=== PATIENT | female | born 1995 | race Caucasian/White ===

== ENCOUNTER 2018-02-06 09:53 | Emergency (ER) | payer OTHER ==
[~2018-02-06] VITALS: Ht 160 cm; Wt 56.7 kg
[2018-02-06] MEDS ORDERED: FLUOXETINE HCL10 M2 PO (11:04)
--- NOTE | 2018-02-06 11:25 | ED GI/GU/ABDOMINAL COMPLAINT ---
History of Present Illness General Chief Complaint: Abdominal Pain/Flank Pain Stated Complaint: +NVD, ABD PAIN, X 16 HRS Source: patient Exam Limitations: no limitations Vital Signs & Intake/Output Vital Signs & Intake/Output Vital Signs Date Time Temp Pulse Resp B/P B/P Pulse O2 O2 Flow FiO2 Mean Ox Delivery Rate 02/06 1353 98.0 106 18 117/67 100 Room Air 02/06 1148 98 Room Air 02/06 1142 98.6 87 18 133/71 97 Room Air 02/06 0957 98.0 108 20 149/74 97 Room Air Allergies Uncoded Allergies: ANESTHSIA (UNKNOWN 02/06/18) Reconcile Medications Fluoxetine HCl 10 MG CAPSULE 1 CAP PO DAILY DEPRESSION (Reported) Omeprazole 40 MG CAPSULE.DR 1 CAP PO DAILY ABD PAIN Ondansetron (Zofran Odt) 4 MG TAB.RAPDIS 1 TAB SL TID NAUSEA Triage Note: PT TO ED C/O SUDDEN ONSET OF SHARP ABD PAIN SINCE YESTERDAY. C/O N/V/D. DENIES S/S. STATES PAIN IS "UNSETTLING". Triage Nurses Notes Reviewed? yes ? N Is pt currently ? No Onset: Abrupt Duration: day(s): (1), constant Timing: recent history Quality/Severity: moderate Location: generalized abdomen Radiation: no radiation Activities at Onset: none No Modifying Factors: none HPI: 22-year-old female comes into the emergency room for further evaluation of abdominal pain. Patient reports that symptoms were sudden onset yesterday. She 's had associated vomiting and belching. She had a decrease in bowel movements with a small one today. Denies any vaginal discharge. Denies any increased frequency or burning with urination. Patient had an appendectomy done back in August 2017. She has a history of stress ulcers. (Tank Kruger) Past History Travel History Traveled to [place] past 21 day No Medical History Any Pertinent Medical History? see below for history Psychiatric: anxiety, depression Surgical History Surgical History: appendectomy Psychosocial History What is your primary language Sierra Leonean Tobacco Use: Never used ETOH Use: denies use Illicit Drug Use: marijuana Family History Hx Contributory? No (Tank Kruger) Review of Systems Review of Systems Constitutional: Reports: no symptoms. EENTM: Reports: no symptoms. Respiratory: Reports: no symptoms. Cardiovascular: Reports: no symptoms. GI: Reports: see HPI. Genitourinary: Reports: no symptoms. Musculoskeletal: Reports: no symptoms. Skin: Reports: no symptoms. Neurological/Psychological: Reports: no symptoms. Hematologic/Endocrine: Reports: no symptoms. Immunologic/Allergic: Reports: no symptoms. All Other Systems: Reviewed and Negative (Tank Kruger) Physical Exam Physical Exam General Appearance: well developed/nourished, alert, awake, mild distress Head: atraumatic Eyes: Bilateral: normal appearance. Ears, Nose, Throat, Mouth: hearing grossly normal, moist mucous membrane Neck: normal inspection Respiratory: normal breath sounds, no respiratory distress Cardiovascular: regular rate/rhythm Gastrointestinal: soft Back: normal inspection Extremities: normal range of motion Neurologic/Psych: awake, alert, oriented x 3 Skin: intact, normal color Core Measures ACS in differential dx? No Sepsis Present: No Sepsis Focused Exam Completed? No (Tank Kruger) Progress Differential Diagnosis: biliary colic, bowel obstruction, cholecystitis, diverticulitis, ectopic , gastritis, pancreatitis, PUD/GERD, perforated viscous, SBO, UTI/pyelo Plan of Care: Orders Procedure Date/time Status LIPASE 02/06 1124 Complete LACTIC ACID 02/06 1124 Complete COMPREHENSIVE METABOLIC PANEL 02/06 1124 Complete CBC WITHOUT DIFFERENTIAL 02/06 1124 Complete URINE 02/06 1002 Complete URINALYSIS 02/06 1002 Complete Laboratory Tests 02/06/18 1424: Lactic Acid Cancelled 02/06/18 1137: Anion Gap 15, Estimated GFR > 60, BUN/Creatinine Ratio 18.3, Glucose 96, Lactic Acid 1.0, Calcium 9.6, Total Bilirubin 0.5, AST 23, ALT 24, Alkaline Phosphatase 87, Total Protein 8.1, Albumin 4.6, Globulin 3.5, Albumin/Globulin Ratio 1.3, Lipase 60, CBC w Diff NO MAN DIFF REQ, RBC 4.53, MCV 88.8, MCH 30.0, MCHC 33.8, RDW 12.7, MPV 8.6, Gran % 82.3 H, Lymphocytes % 9.9 L, Monocytes % 7.0, Eosinophils % 0.7, Basophils % 0.1, Absolute Granulocytes 11.5 H, Absolute Lymphocytes 1.4, Absolute Monocytes 1.0 H, Absolute Eosinophils 0.1, Absolute Basophils 0 02/06/18 1100: Urinalysis LIGHT H, Urine Color BELLE, Urine Clarity HAZY H, Urine pH 6.0, Ur Specific Pringle 1.025, Urine Protein TRACE H, Urine Ketones >=80, Urine Nitrite NEG, Urine Bilirubin NEG@ICTO, Urine Urobilinogen 0.2, Ur Leukocyte Esterase NEG, Ur Microscopic SEDIMENT EXAMINED, Urine RBC 1-3, Urine WBC 1-3 H, Ur Epithelial Cells MOD H, Urine Bacteria MANY H, Urine Mucus MANY H, Urine Hemoglobin TRACE-INTACT, Urine Glucose NEG, Urine Test NEGATIVE Diagnostic Imaging: Viewed by Me: CT Scan. Discussed w/RAD: CT Scan. Radiology Impression: PATIENT: JOSE DOMINGUEZ PRESENT AGE : 22 PATIENT ACCOUNT NO: [id number] : 97 LOCATION: [facility] ORDERING PHYSICIAN: Tank CASPER SERVICE DATE: 02/06/18 EXAM TYPE: CAT - CT ABD & PELVIS W IV CONTRAST EXAMINATION: CT ABDOMEN AND PELVIS WITH CONTRAST CLINICAL INFORMATION: Mid abdominal pain, elevated white blood cell count, history of appendectomy, vomiting COMPARISON: None TECHNIQUE: Multidetector volumetric imaging was performed of the abdomen and pelvis following IV administration of 95 mL of Optiray 320 intravenous contrast. Sagittal and coronal reformatted images were obtained on the technologist's workstation. DLP: 245.43 mGy-cm FINDINGS: LUNG BASES: The visualized lung bases are unremarkable. LIVER, GALLBLADDER, AND BILIARY TREE: The liver is normal in size, shape, and attenuation. No focal hepatic lesion or biliary ductal dilatation is present. The gallbladder is unremarkable with no evidence of radiopaque gallstones, gallbladder wall thickening, or obvious pericholecystic inflammatory changes. PANCREAS: Unremarkable. SPLEEN: Unremarkable. ADRENAL GLANDS: Unremarkable. KIDNEYS AND URETERS: The kidneys are normal in size, shape, and attenuation. No hydronephrosis, hydroureter, or calculi seen. No perinephric stranding. BLADDER: Unremarkable. GASTROINTESTINAL TRACT: No evidence of bowel obstruction. Assessment for wall thickening in some segments of the colon is limited due to luminal collapse, though no significant pericolonic stranding is seen to strongly suggest a colitis. Patient is status post appendectomy. No free fluid or free air is seen. ABDOMINAL WALL: No significant hernia is appreciated. LYMPH NODES: Normal. VASCULAR: Unremarkable. PELVIC VISCERA: Unremarkable. OSSEOUS STRUCTURES: Unremarkable. IMPRESSION: No acute findings identified in the abdomen/pelvis. DICTATED BY: Ben Billingsley MD DATE/TIME DICTATED:02/06/181305 DRAFTER CASTINGS:LASHAY DATE/TIME TRANSCRIBED:02/06/181305 CONFIDENTIAL, DO NOT COPY WITHOUT APPROPRIATE AUTHORIZATION. <Electronically signed in Other Vendor System> SIGNED BY: Ben Billingsley MD 02/06/18 1323 Initial ED EKG: none (Tank Kruger) Departure Departure Disposition: HOME OR SELF CARE Condition: Stable Clinical Impression Primary Impression: Abdominal pain Referrals: Unknown (PCP/Family) Additional Instructions: Take Zofran and omeprazole as prescribed. Follow-up with latrine cleaner provided. Return if any concerns worsening symptoms. Please go over all results of today's visit with your primary care doctor. Contact your primary care doctor to let them know you were here in the emergency room. There may be nonspecific findings which may not be related to your visit today here in the emergency room but may require further evaluation and chronic monitoring by your primary care doctor. If you had a laceration today the chance of foreign body always remains. You should follow-up with your primary care doctor for recheck in 3-5 days for a wound check. If you had an x-ray done there is a chance that a fracture could have been missed on initial read and you should follow-up with your primary care doctor for repeat x-rays if symptoms persist. If your blood pressure was elevated here in the emergency room please have rechecked by [facility] primary care doctor within the next 48. If you were prescribed a narcotic here in the emergency room or any type of controlled substances you're not allowed to drive while taking this medication or operate any type of heavy machinery. Narcotics can make you feel lightheaded dizziness nausea and can cause constipation. You may need to black pickler a stool softener. Thank you for choosing [facility] emergency room. Please return to the emergency room immediately if you have any other concerns worsening of symptoms. Departure Forms: Customer Survey General Discharge Information Prescriptions: Current Visit Scripts Omeprazole 1 CAP PO DAILY #30 CAP Ondansetron (Zofran Odt) 1 TAB SL TID #10 TAB Comments 02/06/2018 5:12:21 PM Patient clinically looks well. Patient is in no apparent distress. Patient is nontoxic-appearing. Resting comfortably in room. Patient feels better after IV medications. Her symptoms improved. She is able to tolerate oral liquids. Return immediately if any other concerns worsening symptoms. Understands and agrees with plan of care. Patient started on PPI for possible gastritis versus ulcer. (Luis CASPER,Tank) PA/PAINT POURER Co-Sign Statement Statement: ED Attending supervision documentation- [] I saw and evaluated the patient. I have also reviewed all the pertinent lab results and diagnostic results. I agree with the findings and the plan of care as documented in the PA's/PAINT POURER's documentation. [X] I have reviewed the ED Record and agree with the PA's/PAINT POURER's documentation. [] Additions or exceptions (if any) to the PAs/PAINT POURER's note and plan are summarized below: [] (Ana DE DIOS,Silas Rojas)
[2018-02-06 11:57] LABS: ABSOLUTE BASOPHIL COUNT 0 /CUMM (0.0-0.2); ABSOLUTE EOSINOPHIL COUNT 0.1 /CUMM (0.0-0.7); ABSOLUTE GRANULOCYTE CT 11.5 /CUMM (1.4-6.5); ABSOLUTE LYMPH COUNT 1.4 /CUMM (1.2-3.4); BASOPHIL % 0.1 % (0.0-2.0); EOSINOPHIL % 0.7 % (0-5); GRANULOCYTE % 82.3 % (42.2-75.2); HEMATOCRIT 40.2 % (37-47); MEAN CORPUSCULAR HGB CONC 33.8 G/DL (33.0-37.0); MEAN CORPUSCULAR VOLUME 88.8 FL (81.0-99.0); MEAN PLATELET VOLUME 8.6 FL (7.4-10.4); PLATELET COUNT 287 /CUMM (130-400); RBC DISTRIBUTION WIDTH 12.7 % (11.5-14.5); RED BLOOD CELL CT 4.53 /CUMM (4.20-5.40)
--- NOTE | 2018-02-06 13:23 | CT SCAN REPORT ---
EXAMINATION: CT ABDOMEN AND PELVIS WITH CONTRAST CLINICAL INFORMATION: Mid abdominal pain, elevated white blood cell count, history of appendectomy, vomiting COMPARISON: None TECHNIQUE: Multidetector volumetric imaging was performed of the abdomen and pelvis following IV administration of 95 mL of Optiray 320 intravenous contrast. Sagittal and coronal reformatted images were obtained on the technologist's workstation. DLP: 245.43 mGy-cm FINDINGS: LUNG BASES: The visualized lung bases are unremarkable. LIVER, GALLBLADDER, AND BILIARY TREE: The liver is normal in size, shape, and attenuation. No focal hepatic lesion or biliary ductal dilatation is present. The gallbladder is unremarkable with no evidence of radiopaque gallstones, gallbladder wall thickening, or obvious pericholecystic inflammatory changes. PANCREAS: Unremarkable. SPLEEN: Unremarkable. ADRENAL GLANDS: Unremarkable. KIDNEYS AND URETERS: The kidneys are normal in size, shape, and attenuation. No hydronephrosis, hydroureter, or calculi seen. No perinephric stranding. BLADDER: Unremarkable. GASTROINTESTINAL TRACT: No evidence of bowel obstruction. Assessment for wall thickening in some segments of the colon is limited due to luminal collapse, though no significant pericolonic stranding is seen to strongly suggest a colitis. Patient is status post appendectomy. No free fluid or free air is seen. ABDOMINAL WALL: No significant hernia is appreciated. LYMPH NODES: Normal. VASCULAR: Unremarkable. PELVIC VISCERA: Unremarkable. OSSEOUS STRUCTURES: Unremarkable. IMPRESSION: No acute findings identified in the abdomen/pelvis.
[2018-02-06] MEDS ORDERED: OMEPRAZOLE40 M1 PO (13:40)
[2018-02-06] MEDS ORDERED: ZOFRAN ODT4 M1 SL (13:40)
[2018-02-06 13:53] VITALS: BP 117/67
== END 2018-02-06 14:19 ==
LOC: ERH 09:53
PROVIDERS: Physician Assistant Medical
DX: R10.84 Generalized abdominal pain (principal)
CPT/HCPCS: 74177; 81001; 81025; 96361; 96374; 96375; J2405

== ENCOUNTER 2018-04-05 17:34 | Emergency (ER) | payer OTHER ==
[~2018-04-05] VITALS: Ht 160 cm; Wt 59.0 kg
[~2018-04-05 17:34] MED LIST: FLUOXETINE HCL10 M2 PO; OMEPRAZOLE40 M1 PO; ZOFRAN ODT4 M1 SL
[2018-04-05 17:41] VITALS: BP 117/73
--- NOTE | 2018-04-05 17:47 | ED SKIN/ALLERGY COMPLAINT ---
History of Present Illness General Chief Complaint: Skin Rash/ Abcess Stated Complaint: BODY RASH RECENT DIAGNOIS OF RINGWORM Source: patient Exam Limitations: no limitations Vital Signs & Intake/Output Vital Signs & Intake/Output Vital Signs Date Time Temp Pulse Resp B/P B/P Pulse O2 O2 Flow FiO2 Mean Ox Delivery Rate 04/05 1741 98.4 74 18 117/73 98 Room Air Allergies Uncoded Allergies: MONOSTAT (Severe, BURNING 04/05/18) ANESTHSIA (UNKNOWN 02/06/18) Reconcile Medications Fluoxetine HCl 10 MG CAPSULE 1 CAP PO DAILY DEPRESSION (Reported) Hydrocortisone 1 % CREAM..G. 1 COURTNEY TOP BID rash apply to affected area(s) Omeprazole 40 MG CAPSULE.DR 1 CAP PO DAILY ABD PAIN Ondansetron (Zofran Odt) 4 MG TAB.RAPDIS 1 TAB SL TID NAUSEA Triage Note: 22 YO FEMALE TO TRIAGE FOR EVAL OF RASH TO R SHOULDER AND UPPER BACK AND ABD. REPORTS WAS SEEN AT THE MINUTE CLINIC AND TOLD IT WAS ?RINGOWRM ON HER ABD, REPORTS WAS PLACED ON KETOCONAZOLE CREAM WITHOUT RELIEF OF S/S. REPROTS RASH OF ITCHY Triage Nurses Notes Reviewed? yes Onset: Gradual Duration: day(s): Timing: recent history Severity: moderate Location: back : No Patient currently breastfeeds: No HPI: 22-year-old female presents to emergency department complaining of rash on her back for the past day. Patient states that she was diagnosed with ringworm a couple days ago at an urgent care. She was started on topical fungal creams. Ringworm is located in multiple locations on her chest and abdomen. Patient states she developed a different itching rash to her back yesterday and is unsure if this is ringworm as well. She tried to go to the walk-in clinic and they referred her here for further evaluation. Patient does report that she has been using a different shampoo recently. (Denisse Houston) Past History Travel History Traveled to [place] past 21 day No Medical History Any Pertinent Medical History? see below for history Psychiatric: anxiety, depression Surgical History Surgical History: appendectomy Psychosocial History What is your primary language Albanian Tobacco Use: Never used Family History Hx Contributory? No (Denisse Houston) Review of Systems Review of Systems Constitutional: Reports: no symptoms. EENTM: Reports: no symptoms. Respiratory: Reports: no symptoms. Cardiovascular: Reports: no symptoms. GI: Reports: no symptoms. Genitourinary: Reports: no symptoms. Musculoskeletal: Reports: no symptoms. Skin: Reports: see HPI. Neurological/Psychological: Reports: no symptoms. Hematologic/Endocrine: Reports: no symptoms. Immunologic/Allergic: Reports: no symptoms. All Other Systems: Reviewed and Negative (Denisse Houston) Physical Exam Physical Exam General Appearance: well developed/nourished, no apparent distress, alert, awake Head: atraumatic, normal appearance Eyes: Bilateral: normal appearance. Ears, Nose, Throat: hearing grossly normal Neck: normal inspection, supple, full range of motion Respiratory: no respiratory distress Back: Fine erythematous papular rash to right back at shoulder blade Extremities: normal inspection, normal range of motion Skin: erythematous lesions to chest and fine erythematous rash to back as described above (Denisse Houston) Progress Differential Diagnosis: abscess/cellulitis, allergic reaction, contact dermatitis, drug reaction, erythema multiforme, urticaria, tinea corporis Plan of Care: Physical exam findings on patient's chest x-ray consistent with fungal infection. Patient in on appropriate cream from [employer]. Rash on patient's back is more consistent with contact dermatitis. This could either be from patient is unlikely versus head and shoulders. As patient requires cream to treat her fungal infection I encouraged patient to discontinue head and shoulders and begin topical hydrocortisone to her back only and take Benadryl. Patient agrees with the plan of care, she is in no acute distress, afebrile. (Denisse Houston) Departure Departure Disposition: HOME OR SELF CARE Condition: Stable Clinical Impression Primary Impression: Rash Secondary Impressions: Tinea corporis Referrals: Unknown Additional Instructions: Begin applying hydrocortisone cream to rash on your back only. Continue fungal cream on your fungal rash. Begin benadryl for itching symptoms. Return with worsening symptoms or concerns. Please note that there might be incidental findings in your evaluation that are unrelated to the current emergency department visit. Please notify your primary care doctor about this emergency department visit in order to obtain and review all of the testing performed so that these incidental findings can be monitored as needed. If you had an x-ray performed, please understand that some fractures may not be seen on the initial set of x-rays. If your symptoms persist you might need a repeat set of x-rays to check for such a fracture. If you had a laceration evaluated, please understand that foreign bodies such as glass or wood may not be visible to the naked eye or on plain x-rays. If the wound becomes red, swollen, increasingly more painful or if there is any drainage from the wound, please have it reevaluated by a physician for the possibility of a retained foreign body. If you're unable to follow up as outlined in the discharge instructions please return to the emergency department. Thank you for choosing the [facility] Emergency Department for your care. It was a pleasure to serve you today. Departure Forms: Customer Survey General Discharge Information Prescriptions: Current Visit Scripts Hydrocortisone 1 COURTNEY TOP BID #30 GM apply to affected area(s) (Gwendolyn CASPER,Denisse Rogers) PA/PAPER CLEANER Co-Sign Statement Statement: ED Attending supervision documentation- [] I saw and evaluated the patient. I have also reviewed all the pertinent lab results and diagnostic results. I agree with the findings and the plan of care as documented in the PA's/PAPER CLEANER's documentation. [x] I have reviewed the ED Record and agree with the PA's/PAPER CLEANER's documentation. [] Additions or exceptions (if any) to the PAs/PAPER CLEANER's note and plan are summarized below: [] (Amanda DE DIOS,[facility])
[2018-04-05] MEDS ORDERED: HYDROCORTISO453.6 G1 TOP (18:19)
== END 2018-04-05 18:27 ==
LOC: ERH 17:34
DX: B35.4 Tinea corporis (principal)